=== PATIENT | female | born 1985 | race Caucasian/White ===

== ENCOUNTER 2022-02-01 14:50 | Emergency (ER) | payer OTHER, SELFPAY ==
--- NOTE | ~2022-02-01 | XR_ITS ---
EXAMINATION: XR LUMBOSACRAL SPINE CLINICAL INFORMATION: Back pain COMPARISON: None TECHNIQUE: Three views of the lumbosacral spine. FINDINGS: The vertebral bodies and posterior elements are normal. The disc spaces are preserved and the vertebral alignment is normal. The paraspinal soft tissues are normal. XR/XR lumbar spine 2-3V IMPRESSION: Unremarkable examination.
[2022-02-01 16:07] VITALS: BP 130/83; PULSE 74; RESP 16; TEMP 36.9; O2SAT 97; BMI 30.9
[2022-02-01 19:44] VITALS: BP 102/71; PULSE 72; TEMP 36.9; O2SAT 100
--- NOTE | 2022-02-01 20:09 | ED.BACK ---
HPI - Back Pain/Injury General Chief Complaint: Back Pain/Injury Stated Complaint: severe lower back pain Time Seen by Provider: 02/01/22 18:56 Source: patient Mode of arrival: ambulatory Limitations: no limitations History of Present Illness HPI Narrative: ower back pain X 3 days,no weakness,no fever,no numbness,no trauma MD elicited complaint: back pain Pertinent past history: prior back pain Onset (ago): day(s) (3) Timing: constant Severity: mild Similar Symptoms Previously: Yes Quality: burning Location: lumbar spine Radiation: none Exacerbating factors: none Relieving factors: none Related Data Previous Rx's Medication Instructions Recorded carisoprodol 350 mg tablet (Soma) 350 mg PO TID PRN back spasm #20 02/01/22 tabs naproxen 500 mg tablet (Naprosyn) 500 mg PO BID PRN PAIN #20 tabs 02/01/22 Allergies Allergy/AdvReac Type Severity Reaction Status Date / Time Sulfa (Sulfonamide Allergy Hives Verified 02/01/22 20:54 Antibiotics) Review of Systems Constitutional: Constitutional: Reports no additional constitutional complaints ENT: Reports system reviewed and no additional complaints, except as documented Cardiovascular: Cardiovascular: Reports no additional cardiovascular complaints Respiratory: Respiratory: Reports no additional respiratory complaints Gastrointestinal: Gastrointestinal: Reports no additional gastrointestinal complaints Neurologic: Reports system reviewed and no additional complaints, except as documented [facility] Past Medical History [facility] Narrative: back pain Social History Social History Advance Directives: No Advance Directives Information Provided: No Physical Exam Vital Signs: Vital Signs: Last Vital Signs Temp 98.5 F 02/01/22 19:44 Pulse 72 02/01/22 19:44 Resp 16 02/01/22 16:07 BP 102/71 02/01/22 19:44 Pulse Ox 100 02/01/22 19:44 O2 Del Method 02/01/22 19:44 BMI result Body Mass Index 30.9 Const: General: cooperative, healthy appearing and comfortable Nutritional Appearance: average body habitus Orientation/consciousness: patient oriented x3 Limitations: no limitations HEENT: Head: Yes normal to inspection General nose exam: Normal external nose present Face and sinus: Yes normal facial exam Mouth: Normal oral and palatal mucosa present Throat: Yes posterior oropharynx normal Neck: Neck: Yes normal visual inspection and Yes full ROM Chest: Chest palpation & inspection: normal inspection of the chest Resp: Effort & Inspection: normal respiratory effort Auscultation: clear to auscultation bilaterally Cardio: Jugular venous distension: no JVD Rate: regular rate Rhythm: regular rhythm GI: Inspection: Yes normal to inspection Palpation (GI): Soft to palpation, not firm, nontender and no guarding Auscultation: normal bowel sounds : General: Yes no CVA tenderness Back/Spine/Pelvis: Back: no CVA tenderness Skin: General skin exam: no rashes or lesions noted Neuro: Other: Patient has no neuro deficits, no deficit in strength, no deficit in sensation, reflexes are normal, she is able to ambulate. General: patient oriented x3 Cranial nerves: Yes CN's II-XII intact bilaterally Motor exam (neuro): 5/5 motor strength present throughout MDM - Back Pain/Injury MDM Narrative Medical decision making narrative: This patient is neurologically intact , she has lower back pain without any red flag such as fever saddle anesthesia numbness deficits in strength. The patient can be safely discharged home with follow-up with the primary care physician Imaging Data ls spine: Radiologist's impression: XR LUMBOSACRAL SPINE CLINICAL INFORMATION: Back pain COMPARISON: None TECHNIQUE: Three views of the lumbosacral spine. FINDINGS: The vertebral bodies and posterior elements are normal. The disc spaces are preserved and the vertebral alignment is normal. The paraspinal soft tissues are normal. XR/XR lumbar spine 2-3V IMPRESSION: Unremarkable examination. Dictated By: Albino Chambers MD Signed By: <Electronically signed by Albino Chambers MD in [place]> 02/01/222020 LSspine: Radiologist's impression: cc: Daniel Stewart MD~ EXAMINATION: XR LUMBOSACRAL SPINE CLINICAL INFORMATION: Back pain COMPARISON: None TECHNIQUE: Three views of the lumbosacral spine. FINDINGS: The vertebral bodies and posterior elements are normal. The disc spaces are preserved and the vertebral alignment is normal. The paraspinal soft tissues are normal. XR/XR lumbar spine 2-3V IMPRESSION: Unremarkable examination. Dictated By: Albino Chambers MD Signed By: <Electronically signed by Albino Chambers MD in [place]> 02/01/222020 DD/ 09 TD/TT:? [employer] Ground Worker: NATALIE Discharge Plan Discharge Clinical Impression: Strain of lumbar region Patient Disposition: Home, Self-Care Instructions: Acute Low Back Pain (ED) Additional Instructions: Return if you worse, if fever; if you are unable to ambulate, if you have numbness/ weakness in the legs Prescriptions: New naproxen [Naprosyn] 500 mg tablet 500 mg PO BID PRN (Reason: PAIN) Qty: 20 0RF carisoprodol [Soma] 350 mg tablet 350 mg PO TID PRN (Reason: back spasm) Qty: 20 0RF Interventions: ED Discharge Assessment Last Done: 02/01/22 20:56 Discharge Date/Time: 02/01/22 20:57
[2022-02-01] MEDS: Ketorolac Tromethamine 60 MG/2 ML VIAL IM (20:34)
[2022-02-01] MEDS: carisoprodoL 350 MG TABLET PO (20:34)
== END 2022-02-01 20:57 | disposition home or self-care (01) ==
PROVIDERS: Emergency Provider Emergency Medicine
DX: S39.012A Strain of muscle, fascia and tendon of lower back, initial encounter (principal); X58.XXXA Exposure to other specified factors, initial encounter; Y93.9 Activity, unspecified; Y92.9 Unspecified place or not applicable; Y99.9 Unspecified external cause status
CPT/HCPCS: 72100; 96372; 99283; 99284; J1885